=== PATIENT | female | born 1965 | race Caucasian/White ===

== ENCOUNTER 2019-11-13 21:29 | Inpatient (IN) ==
[2019-11-13] MEDS ORDERED: DILAUDID IV ONE ×2 (21:36→23:08)
[2019-11-13 21:55] LABS: BASO# 0.05 X1000 (0.0-0.2); BASO% 0.4 % (0.0-0.8); EOS# 0.31 X1000 (0.0-0.7); EOS% 2.3 % (0.0-10.0); HEMATOCRIT 42.7 % (37.0-47.0); HEMOGLOBIN 13.7 g/dL (12.0-16.0); IMM GRAN# 0.12 X1000 (0.0-0.04); IMM GRAN% 0.9 % (0.0-0.5); LYMPH% 24.9 % (20.5-51.1); MCH 29.1 PG (27-31); MCHC 32.1 g/dL (33-37); MCV 90.9 FL (81-99); MONO# 0.84 X1000 (0.11-0.59); MONO% 6.2 % (1.7-9.3); NEUT# 8.93 X1000 (1.4-6.5); NEUT% 65.3 % (42.2-75.2); PLT 253 X1000 (130-400); RDW 13.5 % (11.5-14.5); WBC 13.65 X1000 (4.8-10.8)
[2019-11-13] MEDS ORDERED: KEFZOL 1 GM/D5W 1 GM/50 ML IVPB IV ONE (22:09)
[2019-11-13] MEDS ORDERED: NS 1,000 ML IV ONE (22:10)
[2019-11-13 22:33] LABS: ESTIMATED GFR > 60
[2019-11-13 22:40] LABS: AGAP 19; ALB/GLOB RATIO 1.5; ALBUMIN 3.8 g/dL (3.5-5.0); ALKALINE PHOSPHATASE 109 U/L (32-104); BUN 18 mg/dL (8-22); CALCIUM 8.7 mg/dL (8.8-10.2); CHLORIDE 106 mmol/L (98-107); CK PROFILE 156 U/L (24-173); COSMO 284; CREATININE 0.8 mg/dL (0.5-0.9); GLUCOSE 156 mg/dL (70-104); GOT 124 U/L (10-30); GPT 117 U/L (10-36); POTASSIUM 5.4 mmol/L (3.5-5.1); SODIUM 140 mmol/L (136-145); TCO2 15 mmol/L (25-35); TOTAL BILIRUBIN 0.15 mg/dL (0.20-1.00); TOTAL PROTEIN 6.3 g/dL (6.3-8.3)
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
[2019-11-13] MEDS ORDERED: FENTANYL IV ONE (23:47)
[2019-11-13] MEDS ORDERED: AMIDATE IV ONE (23:47)
[2019-11-14] MEDS ORDERED: XYLOCAINE 2%/EPI 1:100,000 INJ ONE (00:38)
[2019-11-14] MEDS ORDERED: AMIDATE IV ONE (01:16)
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
[2019-11-14 02:23] LABS: URINE SOURCE CATH
[2019-11-14 02:34] LABS: BILIRUBIN URINE NEGATIVE (NEGATIVE); BLOOD URINE LARGE (NEGATIVE); COLOR YELLOW; GLUCOSE URINE NEGATIVE (NEGATIVE); KETONE URINE NEGATIVE (NEGATIVE); LEUKOCYTES URINE NEGATIVE (NEGATIVE); NITRITE URINE NEGATIVE (NEGATIVE); PH URINE 6.5; PROTEIN URINE TRACE mg/dL (NEGATIVE); TURBIDITY URINE CLEAR (CLEAR); UR EPITHELIAL CELLS <10 /HPF (<10); URINE BACTERIA NEGATIVE /HPF; URINE RBC TNTC /HPF (<10); URINE WBC <10 /HPF (<10); UROBILINOGEN URINE NORMAL (NORMAL)
[2019-11-14] MEDS ORDERED: DILAUDID IV ONE ×3 (02:42→08:46)
[2019-11-14] MEDS ORDERED: TYLENOL PO PRN (03:39)
[2019-11-14] MEDS ORDERED: NS 1,000 ML IV SCH (03:39)
[2019-11-14] MEDS ORDERED: ZOFRAN IV PRN (03:39)
[2019-11-14] MEDS: DILAUDID IV PRN ×2 (04:24→07:29)
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
[2019-11-14 05:25] LABS: URINE SOURCE CATH
[2019-11-14 05:42] LABS: BILIRUBIN URINE NEGATIVE (NEGATIVE); BLOOD URINE LARGE (NEGATIVE); COLOR YELLOW; GLUCOSE URINE NEGATIVE (NEGATIVE); KETONE URINE NEGATIVE (NEGATIVE); LEUKOCYTES URINE NEGATIVE (NEGATIVE); NITRITE URINE NEGATIVE (NEGATIVE); PROTEIN URINE TRACE mg/dL (NEGATIVE); TURBIDITY URINE CLEAR (CLEAR); UR EPITHELIAL CELLS <10 /HPF (<10); URINE BACTERIA NEGATIVE /HPF; URINE RBC TNTC /HPF (<10); URINE WBC <10 /HPF (<10); UROBILINOGEN URINE NORMAL (NORMAL)
[2019-11-14 05:56] LABS: BASO# 0.02 X1000 (0.0-0.2); BASO% 0.1 % (0.0-0.8); EOS# 0.02 X1000 (0.0-0.7); EOS% 0.1 % (0.0-10.0); HEMATOCRIT 40.9 % (37.0-47.0); HEMOGLOBIN 12.8 g/dL (12.0-16.0); IMM GRAN# 0.04 X1000 (0.0-0.04); IMM GRAN% 0.3 % (0.0-0.5); LYMPH% 15.2 % (20.5-51.1); MCH 29.2 PG (27-31); MCHC 31.3 g/dL (33-37); MCV 93.2 FL (81-99); MONO# 1.22 X1000 (0.11-0.59); MONO% 8.8 % (1.7-9.3); MPV 10.3 FL (7.4-10.4); NEUT# 10.46 X1000 (1.4-6.5); NEUT% 75.5 % (42.2-75.2); PLT 295 X1000 (130-400); RBC 4.39 XMIL (4.2-5.4); RDW 13.7 % (11.5-14.5); WBC 13.86 X1000 (4.8-10.8)
[2019-11-14 06:29] LABS: AGAP 10; BUN 15 mg/dL (8-22); CALCIUM 8.4 mg/dL (8.8-10.2); CHLORIDE 109 mmol/L (98-107); COSMO 287; CREATININE 0.7 mg/dL (0.5-0.9); ESTIMATED GFR > 60; GLUCOSE 113 mg/dL (70-104); POTASSIUM 4.2 mmol/L (3.5-5.1); SODIUM 143 mmol/L (136-145); TCO2 24 mmol/L (25-35)
--- NOTE | 2019-11-14 06:50 | Diag Imaging Result Doc PS360 ---
ANKLE 2 VIEWS RIGHT - 11/14/2019 INDICATION: post reduction TECHNIQUE: COMPARISON: 11/13/2019 FINDINGS: There is a persistent complete dislocation of the ankle. IMPRESSION: No significant reduction. Electronically signed by Jesus Manuel Serna 11/14/2019 6:48 AM
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
[2019-11-14] MEDS ORDERED: KEFZOL 2 GM/D5W 2 GM/50 ML IVPB IV ONE (08:35)
[2019-11-14] MEDS ORDERED: DIPRIVAN 1% ONE (09:00)
[2019-11-14] MEDS ORDERED: QUELICIN (DOSE) ONE (09:01)
[2019-11-14] MEDS ORDERED: XYLOCAINE-MPF 2% ONE (09:01)
[2019-11-14] MEDS ORDERED: KEFZOL 1 GM/D5W 2 GM/100 ML IVPB ONE (09:09)
[2019-11-14] MEDS ORDERED: SENSORCAINE 0.5%-EPI 1:200,000 ONE ×2 (09:10→12:59)
[2019-11-14] MEDS ORDERED: NEOSPORIN G.U. IRRIGANT ONE (09:10)
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
[2019-11-14] MEDS ORDERED: NAROPIN 0.5% ONE (10:19)
[2019-11-14] MEDS ORDERED: NORCURON ONE (10:22)
[2019-11-14] MEDS ORDERED: ZOFRAN ONE (10:23)
[2019-11-14] MEDS ORDERED: TORADOL ONE (10:23)
[2019-11-14] MEDS ORDERED: DECADRON ONE (10:23)
[2019-11-14] MEDS ORDERED: FENTANYL ONE (10:24)
[2019-11-14] MEDS ORDERED: APRESOLINE ONE (11:21)
[2019-11-14] MEDS ORDERED: DILAUDID ONE (12:15)
[2019-11-14] MEDS ORDERED: ROBINUL ONE (13:13)
[2019-11-14] MEDS ORDERED: NEOSTIGMINE ONE (13:14)
--- NOTE | 2019-11-14 13:29 | OPERATIVE NOTE ---
PROCEDURE DATE: 11/14/2019 PREOPERATIVE DIAGNOSIS: Right bimalleolar open fracture dislocation of the ankle, and right inferior pole patella fracture open fracture displaced. POSTOPERATIVE DIAGNOSES: 1. Right bimalleolar open fracture dislocation of the ankle, and right inferior pole patella fracture open fracture displaced. 2. Rupture of the syndesmosis. 3. Tearing of the calcaneofibular and anterior talofibular ligaments. PROCEDURE: 1. Irrigation and debridement. Open reduction internal fixation of right ankle bimalleolar ankle fracture dislocation with syndesmosis repair with a tight rope. Repair of the anterior talofibular, anterior tibial-fibular and calcaneofibular ligaments. 2. Irrigation debridement and open reduction internal fixation of the inferior pole patella fracture using two 4.5 cannulated screws, and a #5 FiberWire suture as a tension band. ANESTHESIA: General. SURGEON: Tej Oconnell MD. WHITE SHOE EXAMINER: DONATO Cano who was necessary for successful completion of the case. BLOOD LOSS: Minimal. TOURNIQUET TIME: 2 hours. DESCRIPTION OF PROCEDURE: Patient was brought to the operative suite, and placed in the supine position. After successful administration of general anesthesia, a well-padded tourniquet was placed on the right proximal thigh. Right lower extremity was prepped and draped in the usual sterile fashion. Leg was exsanguinated. Tourniquet insufflated to 250 torr. The open wound medially was then copiously irrigated with normal saline containing irrigant and Vashe irrigation. Then, the medial malleolus fracture was reduced and two 45 mm partially threaded cancellous screws were placed. Excellent repair was obtained. The deltoid ligament was intact. Attention was then directed to the lateral malleolus. A longitudinal incision was made overlying the lateral malleolus fracture dissected sharply through the skin and through the fascia protecting the superficial peroneal nerve. It was a quite comminuted fracture proximal to the lateral malleolus. We reduced it getting proper rotation in length, and then put a Synthes pre contoured plate with 4 bicortical screws proximally 3 of them locking, and 5 locking buttress pins distally. Excellent reduction of the fracture was obtained on AP and lateral images. She was found to have a torn anterior talofibular, anterior tibial-fibular, and calcaneofibular ligaments as well as the syndesmosis. The syndesmosis was repaired with a tight rope type suture. It was drilled. The suture button was passed across to the medial cortex, and it was tightened until the button was seated onto the plate, and then it was tied. Excellent reduction was obtained. Attention was then directed to the ligaments. The anterior tibial-fibular ligament, talofibular ligament, and calcaneofibular ligaments were repaired with #2 FiberWire through the drill holes in the plate and through the drill holes in the bone. Excellent repair was obtained. The wounds were copiously irrigated. The fascia was closed with 0 Vicryl. The skin edge approximated with 2- 0 Vicryl. Skin was closed with a 3-0 nylon. The medial side was also closed with 3-0 nylon. Attention was then directed to the patella. The wound was opened. Where it was opened, it was copiously irrigated. The fracture was reduced. Two guide pins for 4.5 cannulated screws were placed. Once it was verified to be in good position, they were reamed and proper length screws were driven into place. Excellent reduction of the fracture was obtained on AP and lateral images. A #5 FiberWire was passed through the screws in a [id number] fashion, and then tied superficially. Excellent purchase was obtained. Excellent range of motion of the knee. The wound was again copiously irrigated. The skin was then approximated with 3-0 nylon. A sterile dressing was applied. A well-padded posterior stirrup with a splint with a cooling blanket was applied on the ankle. The patient had a sterile dressing and island dressing on the knee so that Anesthesia could perform a scalene block and a popliteal block for pain control. She tolerated the procedure well without complication. At the end of the procedure, all counts were correct x2. The patient was transferred to the recovery room in stable condition. cc: MD Leda Rubio MD [facility]
[2019-11-14] MEDS ORDERED: DEMEROL ONE (13:37)
[2019-11-14] MEDS ORDERED: MORPHINE IV PRN (14:08)
[2019-11-14] MEDS ORDERED: NORCO-10 ONE (14:43)
[2019-11-14] MEDS: KEFZOL 2 GM/D5W 2 GM/50 ML IVPB IV SCH (17:06)
[2019-11-14] MEDS: PERICOLACE PO SCH ×2 (17:06→20:17)
--- NOTE | 2019-11-14 18:06 | Diag Imaging Result Doc PS360 ---
EXAM: CHEST-1 VIEW HISTORY: ?R UL PNA TECHNIQUE: Single view COMPARISON: 11/13/2019 FINDINGS: The lungs are well expanded. The heart is not enlarged. The vessels are not distended. There are no infiltrates. No effusion identified. IMPRESSION: No definite pneumonia. Electronically signed by Roberth Merida 11/14/2019 6:04 PM
[2019-11-14] MEDS: NS 1,000 ML IV SCH (18:46)
[2019-11-14] MEDS: PERIDEX MT SCH (20:18)
[2019-11-14] MEDS: NORCO-7.5 PO PRN (20:18)
[2019-11-15] MEDS: KEFZOL 2 GM/D5W 2 GM/50 ML IVPB IV SCH ×2 (00:55→09:11)
[2019-11-15] MEDS: NORCO-7.5 PO PRN ×5 (01:43→21:25)
[2019-11-15] MEDS: DILAUDID IV PRN ×2 (04:52→15:42)
[2019-11-15 06:48] LABS: HEMOGLOBIN A1C 5.4 % (4.8-6.0)
[2019-11-15] MEDS: PERICOLACE PO SCH ×2 (09:11→21:24)
[2019-11-15] MEDS: PERIDEX MT SCH ×2 (09:11→21:24)
[2019-11-15 10:57] LABS: HEPATITIS PROFILE ACUTE SEE COMMENTS
--- NOTE | 2019-11-15 11:03 | ORTHOPAEDICS PROGRESS NOTE ---
DATE: 11/15/2019 SUBJECTIVE: Renee Leiva is a 54-year-old female who is postoperative day 1 from a right bimalleolar ankle open fracture dislocation ORIF and right inferior pole patella fracture open reduction and internal fixation. She is comfortable and has no new complaints. OBJECTIVE: She is a well-developed, well-nourished female. She is alert, oriented, and cooperative with exam. She has not gone to physical therapy yet. Her pain is controlled mainly with p.o. pain medications, although she is still requiring some Dilaudid. She can flex and extend her toes, has brisk capillary refill and intact sensation. ASSESSMENT: Stable right knee and ankle. PLAN: We will begin physical therapy today and tomorrow when she is able to ambulate safely at home and p.o. pain medicine controls her pain, we will allow her to be discharged home. cc: Tej Oconnell MD [facility]
--- NOTE | 2019-11-15 20:46 | PROGRESS NOTE ---
DATE: 11/15/2019 SUBJECTIVE: Patient notes that she is feeling okay. Still having some pain but controlled with medications. Denies any fevers, chills. Denies chest pain. PHYSICAL EXAMINATION: Temperature 99 degrees. pulse 75, respiratory 20, BP 114/65.General: Patient is pleasant, in no distress. HEENT: Normocephalic. Neck: Supple. Cardiovascular: Regular rate. Chest: Clear. Abdomen: Soft. Extremities: No edema. ASSESSMENT: 1. Distal right tibial fracture. 2. Right patellar fracture. 3. Elevated liver function tests of undetermined origin. 4. Dehydration. 5. Hyperkalemia, improved. 6. Mild leukocytosis. PLAN: We will continue to follow. Recheck labs in the a.m. Her potassium is back to normal. Will follow up with Ortho. cc: Jesse Garcia MD
[2019-11-16] MEDS: NORCO-7.5 PO PRN ×4 (01:34→13:47)
--- NOTE | 2019-11-16 09:00 | Diag Imaging Result Doc PS360 ---
EXAM: US GB < RUQ (LIMITED) - 11/16/2019 HISTORY: elevated transaminases TECHNIQUE: Ultrasound gallbladder COMPARISON: 11/13/2019 CT abdomen/pelvis FINDINGS: There are artifacts from bowel gas and body habitus which limit detail. The gallbladder is visualized and demonstrates no abnormalities. There is no evidence of gallstones. The technologist reports negative sonographic Dailey's sign. The common bile duct is normal caliber at 4 mm. The liver is diffusely echodense suggesting fatty infiltration. There is no focal liver lesion identified. There are no abnormalities of the right kidney identified. The pancreas is obscured by artifacts. IMPRESSION: No visible gallbladder abnormality. No evidence of gallstones. Normal caliber common bile duct at 4 mm. Fatty infiltration of liver. Electronically signed by Gus Barron 11/16/2019 8:57 AM
[2019-11-16] MEDS: PERICOLACE PO SCH (09:11)
[2019-11-16] MEDS: PERIDEX MT SCH (09:12)
[2019-11-16 12:14] LABS: HEMATOCRIT 34.5 % (37.0-47.0); HEMOGLOBIN 10.9 g/dL (12.0-16.0); MCH 29.3 PG (27-31); MCHC 31.6 g/dL (33-37); MCV 92.7 FL (81-99); MPV 10.5 FL (7.4-10.4); RBC 3.72 XMIL (4.2-5.4); RDW 13.7 % (11.5-14.5); WBC 11.34 X1000 (4.8-10.8)
[2019-11-16 12:31] LABS: AGAP 10; ALB/GLOB RATIO 1.2; ALKALINE PHOSPHATASE 73 U/L (32-104); BUN 7 mg/dL (8-22); CALCIUM 8.5 mg/dL (8.8-10.2); CHLORIDE 101 mmol/L (98-107); COSMO 277; CREATININE 0.5 mg/dL (0.5-0.9); ESTIMATED GFR > 60; GLUCOSE 123 mg/dL (70-104); GOT 53 U/L (10-30); GPT 52 U/L (10-36); POTASSIUM 3.2 mmol/L (3.5-5.1); SODIUM 139 mmol/L (136-145); TCO2 28 mmol/L (25-35); TOTAL BILIRUBIN 0.37 mg/dL (0.20-1.00); TOTAL PROTEIN 5.6 g/dL (6.3-8.3)
[2019-11-16] MEDS: NS 1,000 ML IV SCH (13:02)
--- NOTE | 2019-11-16 14:00 | DISCHARGE SUMMARY ---
ADMISSION DATE: 11/14/2019 DISCHARGE DATE: 11/16/2019 DISCHARGE DIAGNOSIS: Right open ankle bimalleolar fracture dislocation and right open inferior pole patella fracture, status post open reduction internal fixation of right patellar fracture and right ankle. DISCHARGE MEDICATIONS: See discharge medication list. DISPOSITION: Patient discharged home with instructions, nonweightbearing to right lower extremity. We have provided for her a prescription for a front-wheel walker, a bedside commode, and a wheelchair with right leg rest. She is to return for any signs or symptoms of infection or deep venous thrombosis. She can continue to use the IceMan as needed for her ankle. She will return to see me next . HOSPITAL COURSE: On the day of admission, the patient underwent irrigation and debridement of both her knee and ankle, and then open reduction internal fixation of both her knee and ankle. Her postoperative course is unremarkable. She can receive 24 hours of IV antibiotics. At discharge, she is afebrile, tolerating a regular diet, and ambulating with Physical Therapy. Her dressing is clean, dry, and intact. Her leg is neurovascularly intact. She is discharged to home with instructions to follow up as described above. cc: Tej Oconnell MD
--- NOTE | 2019-11-16 14:40 | PROGRESS NOTE ---
DATE: 11/16/2019 SUBJECTIVE: Patient seen on day of discharge. She seems to be doing well. Has been cleared by Dr. Oconnell. OBJECTIVE: Vital Signs: Blood pressure 137/70, heart rate 92, respiratory rate 18, temperature 98 degrees, saturating 97% on room air. Cardiovascular: Regular rate and rhythm. Pulmonary: Bilateral breath sounds. Clear to auscultation. LABORATORY DATA: Hemoglobin and hematocrit 10 and 34, platelets 233,000. Potassium 3.2. PROBLEM LIST: Distal right tibial fracture, right patellar fracture, and seems to be doing okay. Has been cleared by Orthopedics to go home. The patient requests something else for her bowels. She has been ordered Senokot, which I think is perfectly reasonable. I have added MiraLAX and then lactulose as needed because she is afraid of getting more constipated. cc: Lucio Chowdhury MD
[2019-11-16 15:35] VITALS: BP 129/87
== END 2019-11-16 15:51 | disposition home health service (06) | DRG 493 ==
LOC: ED 21:29 → 4N 11-14 03:25 → SUATTDRO 11-14 03:25
PROVIDERS: ATTEND Internal Medicine